=== PATIENT | male | born 1990 | race Caucasian/White ===

== ENCOUNTER 2022-01-05 05:31 | Outpatient (CLI) | payer BC ==
[~2022-01-05] VITALS: Ht 177.8 cm; Wt 70.0 kg
[2022-01-06] MEDS ORDERED: CETI10CA PO (10:34)
[2022-01-06] MEDS ORDERED: FLUT9.9S NS (10:34)
[2022-01-06] MEDS ORDERED: PRED10TA22 PO (10:34)
== END 2022-01-06 10:39 | disposition home or self-care (01) ==
LOC: PREOP 05:31
PROVIDERS: ATTEND Otolaryngology Otolaryngology/Facial Plastic Surgery
DX: Z01.818 Encounter for other preprocedural examination (principal)

== ENCOUNTER 2022-01-13 06:28 | Day surgery (SDC) | payer BC ==
[2022-01-13] VITALS (10 sets, daily range): BP systolic 111–139; BP diastolic 71–99
[~2022-01-13] VITALS: Ht 177.8 cm; Wt 70.0 kg
[~2022-01-13 06:28] MED LIST: CETI10CA PO; FLUT9.9S NS; PRED10TA22 PO
--- NOTE | 2022-01-13 06:48 | Progress Note-Pre Operative ---
Pre-Operative Progress Note Date of Available H&P: Jan 13, 2022 Date H&P Reviewed: Jan 13, 2022 Time H&P Reviewed: 06:50 History & Physical: H&P Reviewed, Patient Examed, No changes noted Changes from last HP none Pre-Operative Diagnosis: Bilat Chronic Sinusitis, Bilat Hyper of INfTurbs PRABHAKAR VILLAR MD Jan 13, 2022 06:48
[2022-01-13] MEDS ORDERED: PHENYLEPHRINE 0.5% NASAL SPR (NEO-SYNEPHRINE) REG ONE ×2 (06:59→07:22)
[2022-01-13] MEDS ORDERED: COCAINE HCL 4% 2 ML SYR ONE (06:59)
[2022-01-13] MEDS ORDERED: LIDOCAINE/EPI 2% 1:200,00 (XYLOCAINE) 20 ML VIAL ONE (06:59)
[2022-01-13] MEDS ORDERED: BSS 15 ML ONE (07:00)
[2022-01-13 07:07] LABS: BASOPHILS % (AUTO) 0 % (0-10); EOSINOPHILS # (AUTO) 0.6 10^3/uL (0.0-0.3); EOSINOPHILS % (AUTO) 4 % (0-10); HEMATOCRIT 44 % (40-54); HEMOGLOBIN 14.9 g/dL (13.3-17.7); LYMPHOCYTES % (AUTO) 28 % (12-44); MEAN CORPUSCULAR HEMOGLOBIN 30 pg (25-34); MEAN CORPUSCULAR HGB CONC 34 g/dL (32-36); MEAN CORPUSCULAR VOLUME 90 fL (80-99); MEAN PLATELET VOLUME 11.3 fL (9.0-12.2); MONOCYTES # (AUTO) 1.2 10^3/uL (0.0-1.0); MONOCYTES % (AUTO) 9 % (0-12); NEUTROPHILS # (AUTO) 8.4 10^3/uL (1.8-7.8); NEUTROPHILS % (AUTO) 58 % (42-75); PLATELET COUNT 265 10^3/uL (130-400); WHITE BLOOD COUNT 14.5 10^3/uL (4.3-11.0)
[2022-01-13] MEDS ORDERED: AMPICILLIN/SULBACTAM INJECTION 1.5 GM in NS (IVPB) 100 ML IV ONE (07:15)
[2022-01-13] MEDS ORDERED: HYDROCORTISONE 100 MG/2 ML (Solu-CORTEF) VIAL IV ONE (07:15)
[2022-01-13] MEDS ORDERED: BSS 15 ML IR ONE (07:20)
[2022-01-13] MEDS ORDERED: COCAINE HCL 4% 2 ML SYR TOP ONE (07:23)
[2022-01-13] MEDS ORDERED: ROCURONIUM 10 MG/ML 5 ML SYRINGE IV ONE (07:30)
[2022-01-13] MEDS ORDERED: ONDANSETRON 4 MG/2 ML (SDV) Z0FRAN ONE (07:30)
[2022-01-13] MEDS ORDERED: LIDOCAINE/EPI 2% 1:200,00 (XYLOCAINE) 10 ML VIAL INJ ONE (07:30)
[2022-01-13] MEDS ORDERED: LIDOCAINE PF 2% 5 ML (XYLOCAINE) VIAL ONE (07:30)
[2022-01-13] MEDS ORDERED: proPOfol 200 MG/20 ML (DIPRIVAN) VIAL IV ONE (07:30)
[2022-01-13] MEDS ORDERED: GLYCOPYRROLATE 0.2 MG/ML (ROBINUL) 2 ML VIAL ONE (07:30)
[2022-01-13] MEDS ORDERED: fentaNYL INJ 100 MCG/2 ML AMP ONE ×2 (07:31→09:51)
[2022-01-13] MEDS ORDERED: MIDAZOLAM 2 MG/2 ML (VERSED) VIAL ONE (07:31)
[2022-01-13] MEDS: LACTATED RINGERS 1,000 ML IV PRN ×2 (07:33→08:47)
[2022-01-13 07:34] LABS: ALBUMIN 4.2 GM/DL (3.2-4.5); BILIRUBIN,TOTAL 0.3 MG/DL (0.1-1.0); CALCIUM 9.6 MG/DL (8.5-10.1); CREATININE SERUM 0.69 MG/DL (0.60-1.30); POTASSIUM 4.2 MMOL/L (3.6-5.0); TOTAL PROTEIN 6.8 GM/DL (6.4-8.2)
[2022-01-13 07:54] LABS: BAND NEUTROPHILS 1 %; EOSINOPHILS % (MANUAL) 4 %; LYMPHOCYTES % (MANUAL) 25 %; MONOCYTES % (MANUAL) 4 %; NEUTROPHILS % (MANUAL) 66 %; RBC MORPH NORMAL
--- NOTE | 2022-01-13 07:55 | Progress Note-Post Operative ---
Post-Operative Progess Note Surgeon (s)/Machine Operator Picker (s) Surgeon PRABHAKAR IVLLAR MD Machine Operator Picker n/a Pre-Operative Diagnosis Bilat Chronic Sinusitis, Bilat Hyper of INfTurbs Post-Operative Diagnosis same Post-Op Procedure Note Date of Procedure: Jan 13, 2022 Name of Procedure Performed: Bilat ESS, Biat Red of Inf Turbs Description & Findings Description and Findings: n/a Anesthesia Type get Estimated Blood Loss minimal Packing dissolvable nasal packing bilat Specimen(s) collected/removed bilat chonic sinus disease PRABHAKAR VILLAR MD Jan 13, 2022 07:55
[2022-01-13] MEDS ORDERED: HYDROcodone/APAP 5 MG/325 MG (LORTAB) TAB PO PRN (08:00)
[2022-01-13] MEDS ORDERED: D5 1/2 NS W/KCL 20 MEQ/L 1,000 ML IV SCH (08:00)
[2022-01-13] MEDS ORDERED: predniSONE 20 MG TAB PO ONE ×2 (08:00→12:15)
[2022-01-13] MEDS ORDERED: PROMETHAZINE INJ 25 MG/ML (PHENERGAN) AMP IVP PRN (08:00)
[2022-01-13] MEDS ORDERED: NEOSTIGMINE (BLOXIVERZ ) 1 MG/1ML 10 ML VIAL ONE (10:09)
[2022-01-13] MEDS ORDERED: SEVOFLURANE (ULTANE) 15 ML INHAL SOLN ONE (10:09)
[2022-01-13] MEDS ORDERED: ONDANSETRON 4 MG/2 ML (SDV) Z0FRAN IVP PRN (10:15)
[2022-01-13] MEDS ORDERED: fentaNYL INJ 100 MCG/2 ML AMP IVP ONE (10:15)
[2022-01-13] MEDS ORDERED: morphine INJ 10 MG/ML 1ML (SYR OR VIAL) IVP ONE (10:15)
[2022-01-13] MEDS ORDERED: PRD20T PO (11:31)
[2022-01-13] MEDS ORDERED: AMOX-355 PO (11:31)
[2022-01-13] MEDS ORDERED: ACHD5005 PO (11:31)
--- NOTE | 2022-01-13 12:00 | Anesthesia-General Post-Op ---
General Patient Condition Mental Status/LOC: Same as Preop Cardiovascular: Satisfactory Nausea/Vomiting: Absent Respiratory: Satisfactory Pain: Controlled Complications: Absent Post Op Complications Complications None Follow Up Care/Instructions Patient Instructions None needed. Anesthesia/Patient Condition Patient Condition Patient was doing well toward the end of his PACU stay. He had no complaints and stable vital signs. He had significant emergence delirium, punching and kicking on the cart in the operating room. He D/C'd his IV during this. After several minutes this cleared and he was transferred to the PACU. Another IV was started and fentanyl was given for his pain. No complications reported per nursing. CAROLYN BURKETT 23, 2022 12:00
== END 2022-01-13 12:12 | disposition home or self-care (01) ==
LOC: SDC 06:28
PROVIDERS: ATTEND Otolaryngology Otolaryngology/Facial Plastic Surgery
DX: J33.8 Other polyp of sinus (principal); J32.9 Chronic sinusitis, unspecified; J34.3 Hypertrophy of nasal turbinates
CPT/HCPCS: 36415; 80053; 85007; 85027; 87081